=== PATIENT | female | born 1940 | race Caucasian/White ===

== ENCOUNTER 2017-04-28 07:26 | Day surgery (SDC) | payer MEDICARE, OTHER ==
[2017-04-22 16:13] LABS: HEMATOCRIT 39.5 % (36.0-48.0); HEMOGLOBIN 13.1 g/dL (12.0-16.0)
[2017-04-22 16:30] LABS: BUN (BLOOD UREA NITROGEN) 10 MG/DL (6-23); CALCIUM, SERUM 8.7 MG/DL (8.5-10.4); CHLORIDE, SERUM 108 MMOL/L (96-112); CO2 (CARBON DIOXIDE) 28 MMOL/L (24-34); CREATININE 0.71 MG/DL (0.55-1.02); GFR AFRICAN AMERICAN 95 ML/MIN (>=60); GFR NON AFRICAN AMERICAN 82 ML/MIN (>=60); GLUCOSE, SERUM 121 MG/DL (60-99); POTASSIUM, SERUM 3.3 MMOL/L (3.5-5.3); SODIUM, SERUM 141 MMOL/L (135-148)
[~2017-04-28] VITALS: Ht 157.5 cm; Wt 58.2 kg
[~2017-04-28 07:26] MED LIST: BESIFLOXACIN 0.6% OPH; CRESTOR5 MG PO; ILEVRO1.7 ML OPH; PRIN5 PO; SIMBRINZA 1%-0.28 ML OPH; SYSTANE OPH; TIMOPTIC OCU0.25 % OPH; TRUSOPT2 % OPH; VITAMIN B-121000 MC1 SL; VITAMIN D1000 UNI1 PO; [UNRECOGNIZED DRUG - OTHER] OPH
== END 2017-04-28 11:29 | disposition home or self-care (01) ==
LOC: SDC 07:26
PROVIDERS: Ophthalmology
PROC: 08RK3JZ Replacement of Left Lens with Synthetic Substitute, Percutaneous Approach (ICD-10-PCS; principal; 2017-04-28 10:00)
DX: H26.9 Unspecified cataract (principal); I10 Essential (primary) hypertension; G47.33 Obstructive sleep apnea (adult) (pediatric); I44.0 Atrioventricular block, first degree; E78.00 Pure hypercholesterolemia, unspecified; F17.210 Nicotine dependence, cigarettes, uncomplicated; Z88.1 Allergy status to other antibiotic agents; Z85.3 Personal history of malignant neoplasm of breast; Z88.5 Allergy status to narcotic agent; Z88.8 Allergy status to other drugs, medicaments and biological substances; Z79.899 Other long term (current) drug therapy; Z90.12 Acquired absence of left breast and nipple; Z90.49 Acquired absence of other specified parts of digestive tract; Z98.41 Cataract extraction status, right eye; Z96.1 Presence of intraocular lens; Z98.890 Other specified postprocedural states
CPT/HCPCS: 80048; 85014; 85018; 93005; J2405; J3370